=== PATIENT | female | born 1985 | race Two or more races ===

== ENCOUNTER 2021-05-04 20:39 | Outpatient (CLI) | payer OTHER ==
[2021-05-04] MEDS ORDERED: PRENATAL TABLE1 EAC1 PO (20:49)
[2021-05-04] MEDS ORDERED: DIALYVITE 800-1 EACH PO (20:50)
== END 2021-05-05 13:15 | disposition home or self-care (01) ==
LOC: OBS/DEL 20:39
PROVIDERS: ATTEND Obstetrics & Gynecology Obstetrics
DX: O47.1 False labor at or after 37 completed weeks of gestation (principal); Z3A.37 37 weeks gestation of pregnancy

== ENCOUNTER 2021-05-07 21:48 | Inpatient (IN) | payer OTHER ==
[~2021-05-07] VITALS: Ht 165.1 cm; Wt 2.3 kg
[~2021-05-07 21:48] MED LIST: DIALYVITE 800-1 EACH PO; PRENATAL TABLE1 EAC1 PO
== END 2021-05-11 14:34 | disposition home or self-care (01) | DRG 785 ==
LOC: LDR 21:48 → OB/GYN 05-08 17:19
PROVIDERS: ADMIT Obstetrics & Gynecology Obstetrics; ATTEND Obstetrics & Gynecology Obstetrics
PROC: 10D00Z1 Extraction of Products of Conception, Low, Open Approach (ICD-10-PCS; principal; 2021-05-07)
PROC: 0UB70ZZ Excision of Bilateral Fallopian Tubes, Open Approach (ICD-10-PCS; 2021-05-07)
PROC: 4A1HXFZ Monitoring of Products of Conception, Cardiac Rhythm, External Approach (ICD-10-PCS; 2021-05-07)
DX: O13.4 Gestational [pregnancy-induced] hypertension without significant proteinuria, complicating childbirth (principal); O34.211 Maternal care for low transverse scar from previous cesarean delivery; Z30.2 Encounter for sterilization; Z3A.37 37 weeks gestation of pregnancy; Z37.0 Single live birth